=== PATIENT | female | born 1990 | race Caucasian/White ===

== ENCOUNTER 2018-05-19 20:17 | Emergency (ER) | payer OTHER, MEDICAID ==
[~2018-05-19] VITALS: Ht 162.6 cm; Wt 78.0 kg
[~2018-05-19 20:17] MED LIST: PHENERGAN 25 MG25 M1 PO; POTASSIUM20 PO
[2018-05-19 20:56] LABS: BASOPHILS 0.4 %; HEMATOCRIT 43.5 % (37.0-47.0); HEMOGLOBIN 15.2 gm/dL (12.0-15.0); NUCLEATED RBCS 0 /100WBC; PLATELET COUNT* 248 thou/uL (150-400)
[2018-05-19 20:57] LABS: ABSOLUTE EOSINOPHILS 0.2 thou/uL (0.0-0.7); ABSOLUTE LYMPHOCYTES 1.1 thou/uL (0.8-5.3); ABSOLUTE MONOCYTES 0.4 thou/uL (0.0-1.2); ABSOLUTE NEUTROPHILS 5.6 thou/uL (1.6-8.1); EOSINOPHILS 2.5 %; LYMPHOCYTES 15.2 %; MCH 32.4 pg (26.0-34.0); MCHC 35.1 g/dL (28.0-37.0); MCV 92.3 fL (80.0-100.0); MONOCYTES 4.9 %; RBC 4.71 mil/uL (4.20-5.00); RDW-CV 13.4 % (10.5-14.5); WBC 7.3 thou/uL (4.0-11.0)
[2018-05-19 20:59] LABS: CALCIUM 8.9 mg/dL (8.5-10.1); CREATININE 0.6 mg/dL (0.6-1.3); POTASSIUM 3.3 mmol/L (3.5-5.1)
[2018-05-19 21:04] LABS: ALBUMIN 3.9 g/dL (3.4-5.0); TOTAL BILIRUBIN 0.5 mg/dL (<0.1-1.0)
[2018-05-19] MEDS ORDERED: ZOFRAN ODT4 MG SUBLING (21:23)
[2018-05-19 21:45] VITALS: BP 117/58
== END 2018-05-19 21:46 | disposition home or self-care (01) ==
LOC: M.ERS 20:17
PROVIDERS: Family Medicine
DX: O21.9 Vomiting of pregnancy, unspecified (principal); R19.7 Diarrhea, unspecified; F17.210 Nicotine dependence, cigarettes, uncomplicated; G47.30 Sleep apnea, unspecified; L40.9 Psoriasis, unspecified; Z88.8 Allergy status to other drugs, medicaments and biological substances; Z90.49 Acquired absence of other specified parts of digestive tract; Z3A.08 8 weeks gestation of pregnancy

== ENCOUNTER 2018-09-06 02:12 | Emergency (ER) | payer OTHER, MEDICAID ==
[~2018-09-06] VITALS: Ht 162.6 cm; Wt 80.7 kg
[~2018-09-06 02:12] MED LIST changes: +ZOFRAN ODT4 MG SUBLING
[2018-09-06] MEDS ORDERED: PRENATAL PO (02:22)
[2018-09-06] MEDS ORDERED: AMOXICILLIN 50500 MG PO (02:24)
[2018-09-06 02:30] VITALS: BP 130/68
== END 2018-09-06 02:30 | disposition home or self-care (01) ==
LOC: M.ERS 02:12
DX: O26.892 Other specified pregnancy related conditions, second trimester (principal); Z3A.23 23 weeks gestation of pregnancy; K02.9 Dental caries, unspecified; Z90.49 Acquired absence of other specified parts of digestive tract; G47.30 Sleep apnea, unspecified; F17.210 Nicotine dependence, cigarettes, uncomplicated; Z88.8 Allergy status to other drugs, medicaments and biological substances

== ENCOUNTER 2018-10-11 12:31 | Emergency (ER) | payer OTHER, MEDICAID ==
[~2018-10-11] VITALS: Ht 162.6 cm; Wt 82.6 kg
[~2018-10-11 12:31] MED LIST changes: +AMOXICILLIN 50500 MG PO; +PRENATAL PO
[2018-10-11 13:21] LABS: HEMATOCRIT 35.7 % (37.0-47.0); HEMOGLOBIN 12.5 gm/dL (12.0-15.0); MCH 33.2 pg (26.0-34.0); MCHC 35.1 g/dL (28.0-37.0); MCV 94.5 fL (80.0-100.0); NUCLEATED RBCS 0 /100WBC; PLATELET COUNT* 208 thou/uL (150-400); RBC 3.78 mil/uL (4.20-5.00); RDW-CV 13.4 % (10.5-14.5); WBC 6.4 thou/uL (4.0-11.0)
[2018-10-11 13:39] LABS: ANION GAP 11 mmol/L (7-16); BUN 5 mg/dL (7-18); CALCIUM 8.3 mg/dL (8.5-10.1); CHLORIDE 105 mmol/L (98-107); CO2 22 mmol/L (21-32); CREATININE 0.5 mg/dL (0.6-1.3); GLUCOSE 87 mg/dL (70-99); POTASSIUM 3.2 mmol/L (3.5-5.1); SODIUM 138 mmol/L (136-145); TROPONIN-I LEVEL <0.06 ng/mL (<0.06)
[2018-10-11 13:40] LABS: ALBUMIN 2.6 g/dL (3.4-5.0); ALKALINE PHOSPHATASE 96 U/L (46-116); LIPASE 131 U/L (73-393); NT-PRO BRAIN NAT PEPTIDE 70 pg/mL (<300); SGOT 19 U/L (15-37); SGPT 17 U/L (30-65); TOTAL BILIRUBIN 0.2 mg/dL (<0.1-1.0); TOTAL PROTEIN 6.7 g/dL (6.4-8.2)
[2018-10-11 14:07] LABS: URINE BILIRUBIN NEGATIVE (Negative); URINE BLOOD NEGATIVE (Negative); URINE CLARITY SL CLOUDY; URINE COLOR DARK YELLOW; URINE GLUCOSE-RANDOM NEGATIVE (Negative); URINE KETONES NEGATIVE (Negative); URINE LEUKOCYTES-REFLEX NEGATIVE (Negative); URINE NITRITE-REFLEX NEGATIVE (Negative); URINE PROTEIN NEGATIVE (Negative); URINE SPECIFIC GRAVITY >= 1.030 (1.005-1.030); URINE UROBILINOGEN 0.2 E.U./dl (0.2-1.0)
[2018-10-11 14:18] LABS: SQUAMOUS >10 Many /LPF (0-3)
[2018-10-11 14:19] LABS: URINE RBC 0-2 Rare /HPF (0-2); URINE WBC-REFLEX 0-5 Rare /HPF (0-5)
[2018-10-11 14:20] LABS: CASTS None Seen /LPF (None Seen); CRYSTALS None Seen /LPF (None Seen); MUCUS >6 Heavy strn/LPF (None Seen)
[2018-10-11 14:33] LABS: INFLUENZA B ANTIGEN None Detected (None Detect)
[2018-10-11 14:39] LABS: ABSOLUTE BASOPHILS 0.1 thou/uL (0.0-0.2); ABSOLUTE EOSINOPHILS 0.1 thou/uL (0.0-0.7); ABSOLUTE LYMPHOCYTES 0.5 thou/uL (0.8-5.3); ABSOLUTE MONOCYTES 0.2 thou/uL (0.0-1.2); ABSOLUTE NEUTROPHILS 5.6 thou/uL (1.6-8.1); PLATELET ESTIMATE ADEQUATE
[2018-10-11] MEDS ORDERED: ONDANSETRON HCL4 M2 PO (15:31)
[2018-10-11] MEDS ORDERED: VENTOLIN HFA 1818 GM INH (15:31)
[2018-10-11] MEDS ORDERED: OSELB75 PO (15:31)
[2018-10-11] MEDS ORDERED: ZPAK PO (15:31)
[2018-10-11 15:42] VITALS: BP 120/67
--- NOTE | 2018-10-12 15:04 | EKG ---
[place] [address] ELECTROCARDIOGRAM REPORT Name: PARIS BARBA Room: [facility]#: [id number] Admission: 10/11/18 Attend Phys: Discharge: 10/11/18 Date of : [birth year] Report #: [id number] THIS REPORT FOR: //name// [facility] ED Test Date: 2018-10-11 Test Time: 13:26:03 Pat Name: PARIS BARBA Department: Room: Gender: F Trim Machine Adjuster: Alanna BATISTA : 1990 Requested By: Myrna Moore Order Number: [id number] MD: Will Govea Measurements Intervals [place] Rate: 113 P: 44 ND: 145 QRS: 1 QRSD: 82 T: 15 QT: 324 QTc: 445 Interpretive Statements Sinus tachycardia No previous ECG available for comparison Electronically Signed On 10-12-2018 15:04:46 CDT by Will Govea [email or web address] <ELECTRONICALLY SIGNED> By: Will Govea MD, [facility] 10/12/18 1504 1326 1326 Will Govea MD, [facility] /EPI
== END 2018-10-11 15:44 | disposition home or self-care (01) ==
LOC: M.ERS 12:31
PROVIDERS: Nurse Practitioner Family
DX: J09.X1 Influenza due to identified novel influenza A virus with pneumonia (principal); G47.30 Sleep apnea, unspecified; Z90.49 Acquired absence of other specified parts of digestive tract; F17.210 Nicotine dependence, cigarettes, uncomplicated; Z88.8 Allergy status to other drugs, medicaments and biological substances

== ENCOUNTER 2018-11-07 18:56 | Emergency (ER) | payer OTHER, MEDICAID ==
[~2018-11-07] VITALS: Ht 162.6 cm; Wt 82.6 kg
[~2018-11-07 18:56] MED LIST changes: +ONDANSETRON HCL4 M2 PO; +OSELB75 PO; +VENTOLIN HFA 1818 GM INH; +ZPAK PO
[2018-11-07] MEDS ORDERED: ZPAK PO (19:55)
[2018-11-07 20:25] LABS: INFLUENZA A ANTIGEN None Detected (None Detect); INFLUENZA B ANTIGEN None Detected (None Detect)
[2018-11-07 20:38] VITALS: BP 118/78
== END 2018-11-07 20:46 | disposition home or self-care (01) ==
LOC: M.ERS 18:56
PROVIDERS: Physician Assistant
DX: J18.9 Pneumonia, unspecified organism (principal); G47.30 Sleep apnea, unspecified; Z90.49 Acquired absence of other specified parts of digestive tract; F17.210 Nicotine dependence, cigarettes, uncomplicated; Z88.8 Allergy status to other drugs, medicaments and biological substances

== ENCOUNTER 2019-04-13 20:53 | Inpatient (IN) | payer OTHER, MEDICAID ==
[~2019-04-13] VITALS: Ht 162.6 cm; Wt 72.6 kg
[2019-04-13 21:11] VITALS: BP 120/83
[2019-04-13 22:11] LABS: ABSOLUTE BASOPHILS 0.1 thou/uL (0.0-0.2); ABSOLUTE EOSINOPHILS 0.2 thou/uL (0.0-0.7); ABSOLUTE LYMPHOCYTES 2.8 thou/uL (0.8-5.3); ABSOLUTE MONOCYTES 0.6 thou/uL (0.0-1.2); ABSOLUTE NEUTROPHILS 4.3 thou/uL (1.6-8.1); BASOPHILS 0.9 %; HEMATOCRIT 40.8 % (37.0-47.0); HEMOGLOBIN 14.1 gm/dL (12.0-15.0); MCH 32.6 pg (26.0-34.0); MCHC 34.4 g/dL (28.0-37.0); MCV 94.6 fL (80.0-100.0); MONOCYTES 7.1 %; MPV 7.9 fl. (7.2-11.1); NUCLEATED RBCS 0 /100WBC; PLATELET COUNT* 259 thou/uL (150-400); RBC 4.31 mil/uL (4.20-5.00); RDW-CV 13.7 % (10.5-14.5)
[2019-04-13 22:22] LABS: ANION GAP 10 mmol/L (7-16); BUN 13 mg/dL (7-18); CALCIUM 8.8 mg/dL (8.5-10.1); CHLORIDE 107 mmol/L (98-107); CO2 25 mmol/L (21-32); CREATININE 0.8 mg/dL (0.6-1.3); GLUCOSE 81 mg/dL (70-99); POTASSIUM 3.8 mmol/L (3.5-5.1); SODIUM 142 mmol/L (136-145)
[2019-04-13 22:26] LABS: ALBUMIN 3.4 g/dL (3.4-5.0); ALKALINE PHOSPHATASE 73 U/L (46-116); SGOT 13 U/L (15-37); SGPT 20 U/L (30-65); TOTAL BILIRUBIN 0.1 mg/dL (<0.1-1.0); TOTAL PROTEIN 7.2 g/dL (6.4-8.2); TROPONIN-I LEVEL <0.06 ng/mL (<0.06)
[2019-04-13 22:39] LABS: URINE BILIRUBIN NEGATIVE (Negative); URINE BLOOD 3+ (Negative); URINE CLARITY CLEAR; URINE COLOR YELLOW; URINE GLUCOSE-RANDOM NEGATIVE (Negative); URINE KETONES NEGATIVE (Negative); URINE LEUKOCYTES-REFLEX NEGATIVE (Negative); URINE NITRITE-REFLEX NEGATIVE (Negative); URINE PROTEIN NEGATIVE (Negative); URINE SPECIFIC GRAVITY 1.015 (1.005-1.030); URINE UROBILINOGEN 0.2 E.U./dl (0.2-1.0)
[2019-04-13 22:46] LABS: SQUAMOUS 4-10 Moderate /LPF (0-3)
[2019-04-13 22:47] LABS: BACTERIA-REFLEX 1-9 Few /HPF (None Seen); MUCUS 0-3 Light strn/LPF (None Seen); URINE WBC-REFLEX 0-5 Rare /HPF (0-5)
[2019-04-13 22:48] LABS: CASTS None Seen /LPF (None Seen); CRYSTALS None Seen /LPF (None Seen)
[2019-04-14] VITALS (7 sets, daily range): BP systolic 98–113; BP diastolic 40–67
--- NOTE | 2019-04-14 12:13 | 2DMMODE ---
[place] [address] 2 D/M-MODE ECHOCARDIOGRAM Name: PARIS BARBA Room: [facility] ADM IN [facility]#: [id number] Admission: 04/13/19 Attend Phys: Karl Frye Discharge: Date of : 89 Date of Service: 04/14/19 1213 Report #: [id number] THIS REPORT FOR: //name// APPROVED REPORT Study performed: 04/14/2019 11:00:15 EXAM: Comprehensive 2D, Doppler, and color-flow Echocardiogram Patient Location: In-Patient Room #: [facility] Status: routine BSA: 1.87 HR: 70 bpm BP: 109/54 mmHg Rhythm: NSR Other Information Study Quality: Good Indications Pulmonary Embolism 2D Dimensions IVSd: 10.36 (7-11mm) LVOT Diam: 20.35 (18-24mm) LVDd: 41.88 mm PWd: 9.66 (7-11mm) Ascending Ao: 26.69 (22-36mm) LVDs: 25.13 (25-40mm) Aortic Root: 28.21 mm Volumes Left Atrial Volume (Systole) LA ESV Index: 20.10 mL/m2 Aortic Valve AoV Peak Bryan.: 1.34 m/s AO Peak Gr.: 7.16 mmHg LVOT Max P.94 mmHg AO Mean Gr.: 3.79 mmHg LVOT Mean P.88 mmHg LVOT Max V: 0.99 m/s AO V2 VTI: 26.83 cm LVOT Mean V: 0.62 m/s SHAUN (VTI): 2.68 cm2 LVOT V1 VTI: 22.08 cm Mitral Valve E/A Ratio: 2.30 MV Decel. Time: 153.32 ms MV E Max Bryan.: 0.85 m/[place] [address] 2 D/M-MODE ECHOCARDIOGRAM Name: PARIS BARBA Room: [address] IN .R.#: [id number] Admission: 04/13/19 Attend Phys: Karl Frye Discharge: Date of : [birth year] Date of Service: 04/14/19 1213 Report #: [id number] MV PHT: 44.46 ms MVA (PHT): 4.95 cm2 TDI E/Lateral E': 5.00 E/Medial E': 6.07 Medial E' Bryan.: 0.14 m/s Lateral E' Bryan.: 0.17 m/s Pulmonary Valve PV Peak Bryan.: 1.05 m/s PV Peak Gr.: 4.37 mmHg Left Ventricle The left ventricle is normal size. There is normal LV segmental wall motion. There is normal left ventricular wall thickness. Left ventricular systolic function is normal. LVEF is 60-65%. The left ventricular diastolic function is normal. Right Ventricle The right ventricle is normal size. The right ventricular systolic function is normal. Atria The left atrium size is normal. The right atrium size is normal. Aortic Valve The aortic valve is normal in structure. No aortic regurgitation is present. There is no aortic valvular stenosis. Mitral Valve The mitral valve is normal in structure. Trace mitral regurgitation. No evidence of mitral valve stenosis. Tricuspid Valve The tricuspid valve is normal in structure. Unable to assess PA pressure. Trace tricuspid regurgitation. Pulmonic Valve The pulmonary valve is normal in structure. There is no pulmonic valvular regurgitation. Great Vessels The aortic root is normal in size. IVC is normal in size and collapses >50% with inspiration. [place] [address] 2 D/M-MODE ECHOCARDIOGRAM Name: PARIS BARBA Room: [address] IN [facility]#: [id number] Admission: 04/13/19 Attend Phys: Karl Frye Discharge: Date of : [birth year] Date of Service: 04/14/19 1213 Report #: [id number] There is no pericardial effusion. <Conclusion> The left ventricle is normal size. There is normal left ventricular wall thickness. Left ventricular systolic function is normal. LVEF is 60-65%. The left ventricular diastolic function is normal. There is normal LV segmental wall motion. IVC is normal in size and collapses >50% with inspiration. <ELECTRONICALLY SIGNED> By: Will Govea MD, FACC 04/14/19 121 12 121 Will Govea MD, FACC /INF
[2019-04-14 14:50] LABS: URINE BILIRUBIN NEGATIVE (Negative); URINE BLOOD 3+ (Negative); URINE CLARITY CLEAR; URINE COLOR YELLOW; URINE GLUCOSE-RANDOM NEGATIVE (Negative); URINE KETONES NEGATIVE (Negative); URINE LEUKOCYTES-REFLEX TRACE (Negative); URINE NITRITE-REFLEX NEGATIVE (Negative); URINE PROTEIN NEGATIVE (Negative); URINE UROBILINOGEN 0.2 E.U./dl (0.2-1.0)
--- NOTE | 2019-04-14 15:01 | EKG ---
[place] [address] ELECTROCARDIOGRAM REPORT Name: PARIS BARBA Room: [address] ADM IN ..#: [id number] Admission: 04/13/19 Attend Phys: Scooter Reyes Discharge: Date of : [birth year] Report #: [id number] THIS REPORT FOR: //name// [facility] ED Test Date: 2019-04-13 Test Time: 22:00:56 Pat Name: PARIS BARBA Department: Room: [facility] Gender: F Medication Technician: MIGUEL : 1990 Requested By: Germania Tariq Order Number: [id number] MD: Will Govea Measurements Intervals [place] Rate: 85 P: 27 NE: 168 QRS: -3 QRSD: 85 T: 8 QT: 355 QTc: 422 Interpretive Statements Sinus rhythm Low voltage, extremity leads Compared to ECG 10/11/2018 13:26:03 Low QRS voltage now present Sinus tachycardia no longer present Electronically Signed On 04-14-2019 15:01:34 CDT by Will Govea [email or web address] <ELECTRONICALLY SIGNED> By: Will Govea MD, FAC 04/14/19 1501 99 99 Will Govea MD, [facility] /EPI
--- NOTE | 2019-04-14 15:08 | EKG ---
[place] [address] ELECTROCARDIOGRAM REPORT Name: PARIS BARBA Room: [address] ADM IN .R.#: [id number] Admission: 04/13/19 Attend Phys: Scooter Reyes Discharge: Date of : [birth year] Report #: [id number] THIS REPORT FOR: //name// [facility] Test Date: 2019-04-14 Test Time: 14:30:52 Pat Name: PARIS BARBA Department: Room: [address] Gender: F Clinical Data Abstractor: RT : 1990 Requested By: Rani Devi Order Number: [id number] MD: Will Govea Measurements Intervals [place] Rate: 96 P: 55 ME: 145 QRS: 92 QRSD: 96 T: 43 QT: 345 QTc: 436 Interpretive Statements Sinus arrhythmia Borderline right axis deviation Compared to ECG 10/11/2018 13:26:03 Sinus tachycardia no longer present Electronically Signed On 04-14-2019 15:08:22 CDT by Will Govea [email or web address] <ELECTRONICALLY SIGNED> By: Will Govea MD, [facility] 04/14/19 1508 1430 1430 Will Govea MD, [facility] /EPI
[2019-04-14 15:14] LABS: BACTERIA-REFLEX 1-9 Few /HPF (None Seen); CASTS None Seen /LPF (None Seen); CRYSTALS None Seen /LPF (None Seen); SQUAMOUS 0-3 Few /LPF (0-3); URINE RBC 0-2 Rare /HPF (0-2); URINE WBC-REFLEX 0-5 Rare /HPF (0-5)
[2019-04-15 04:39] VITALS: BP 107/54
[2019-04-15 08:00] VITALS: BP 106/61
[2019-04-15] MEDS ORDERED: ELIQUIS5 MG PO (09:11)
[2019-04-15 11:08] VITALS: BP 106/61
[2019-04-15] MEDS ORDERED: XARELTO15 MG PO (11:45)
== END 2019-04-15 12:30 | disposition home or self-care (01) | DRG 176 ==
LOC: M.ERS 20:53 → M.2W 23:52 → M.TBA-ER 23:52 → M.2W 04-14 00:06
PROVIDERS: Family Medicine; Physician Assistant; ADMIT Internal Medicine
DX: I26.99 Other pulmonary embolism without acute cor pulmonale (principal); Z90.49 Acquired absence of other specified parts of digestive tract; Z87.01 Personal history of pneumonia (recurrent); Z88.8 Allergy status to other drugs, medicaments and biological substances; Z71.6 Tobacco abuse counseling; Z80.0 Family history of malignant neoplasm of digestive organs; Z79.899 Other long term (current) drug therapy

== ENCOUNTER 2019-04-19 15:57 | Emergency (ER) | payer OTHER, MEDICAID ==
[~2019-04-19] VITALS: Ht 162.6 cm; Wt 77.1 kg
[~2019-04-19 15:57] MED LIST changes: +ELIQUIS5 MG PO; +XARELTO15 MG PO
[2019-04-19] MEDS ORDERED: VISTARIL 25 MG25 M1 PO (17:23)
[2019-04-19 17:51] VITALS: BP 127/83
--- NOTE | 2019-04-20 10:28 | EKG ---
[place] [address] ELECTROCARDIOGRAM REPORT Name: PARIS BARBA Room: [facility]#: [id number] Admission: 04/19/19 Attend Phys: Discharge: 04/19/19 Date of : [birth year] Report #: [id number] THIS REPORT FOR: //name// [facility] ED Test Date: 2019-04-19 Test Time: 16:50:10 Pat Name: PARIS BARBA Department: Room: Gender: F Service Delivery Manager: : 1990 Requested By: Germania Tariq Order Number: [id number] MD: Johnny Melgar Measurements Intervals [place] Rate: 91 P: 30 NC: 166 QRS: 34 QRSD: 82 T: 21 QT: 349 QTc: 430 Interpretive Statements Sinus rhythm Borderline low voltage, extremity leads Baseline wander in lead(s) V2 Compared to ECG 04/14/2019 14:30:52 Sinus arrhythmia no longer present Electronically Signed On 04-20-2019 10:28:21 CDT by Johnny Melgar [email or web address] <ELECTRONICALLY SIGNED> By: Johnny Melgar MD, [facility] 04/20/19 1028 1650 1650 Johnny Melgar MD, [facility] /EPI
== END 2019-04-19 17:53 | disposition home or self-care (01) ==
LOC: M.ERS 15:57
DX: F41.9 Anxiety disorder, unspecified (principal); F17.210 Nicotine dependence, cigarettes, uncomplicated; G47.30 Sleep apnea, unspecified; L40.9 Psoriasis, unspecified; Z88.8 Allergy status to other drugs, medicaments and biological substances; Z86.711 Personal history of pulmonary embolism; Z90.49 Acquired absence of other specified parts of digestive tract

== ENCOUNTER 2019-06-27 17:56 | Emergency (ER) | payer BC ==
[~2019-06-27] VITALS: Ht 162.6 cm; Wt 82.1 kg
[~2019-06-27 17:56] MED LIST changes: +VISTARIL 25 MG25 M1 PO
[2019-06-27] MEDS ORDERED: TOPROL XL25 MG PO (18:04)
[2019-06-27 18:19] LABS: ABSOLUTE BASOPHILS 0.1 thou/uL (0.0-0.2); ABSOLUTE EOSINOPHILS 0.2 thou/uL (0.0-0.7); ABSOLUTE LYMPHOCYTES 2.6 thou/uL (0.8-5.3); ABSOLUTE MONOCYTES 0.4 thou/uL (0.0-1.2); ABSOLUTE NEUTROPHILS 4.3 thou/uL (1.6-8.1); BASOPHILS 0.8 %; EOSINOPHILS 2.4 %; HEMATOCRIT 45.4 % (37.0-47.0); LYMPHOCYTES 34.6 %; MCH 31.9 pg (26.0-34.0); MCHC 35.3 g/dL (28.0-37.0); MCV 90.2 fL (80.0-100.0); MONOCYTES 4.9 %; MPV 7.6 fl. (7.2-11.1); NUCLEATED RBCS 0 /100WBC; PLATELET COUNT* 260 thou/uL (150-400); POLYS 57.3 %; RBC 5.03 mil/uL (4.20-5.00); RDW-CV 13.9 % (10.5-14.5); WBC 7.5 thou/uL (4.0-11.0)
[2019-06-27 18:26] LABS: CALCIUM 8.9 mg/dL (8.5-10.1); CREATININE 0.7 mg/dL (0.6-1.3); POTASSIUM 3.6 mmol/L (3.5-5.1)
[2019-06-27 18:30] LABS: APTT 26.7 Seconds (25.0-31.3); PROTIME 10.7 Seconds (9.20-11.50)
[2019-06-27 18:37] LABS: ALBUMIN 4.3 g/dL (3.4-5.0); TOTAL BILIRUBIN 0.3 mg/dL (<0.1-1.0); TOTAL PROTEIN 8.5 g/dL (6.4-8.2)
[2019-06-27 19:39] VITALS: BP 109/65
--- NOTE | 2019-06-29 11:30 | EKG ---
[place] [address] ELECTROCARDIOGRAM REPORT Name: PARIS BARBA Room: [facility]#: [id number] Admission: 06/27/19 Attend Phys: Discharge: 06/27/19 Date of : [birth year] Report #: [id number] THIS REPORT FOR: //name// [facility] ED Test Date: 2019-06-27 Test Time: 18:01:11 Pat Name: PARIS BARBA Department: Room: Gender: F Branch Library Clerk: : 1990 Requested By: Myrna Moore Order Number: [id number] MD: Johnny Melgar Measurements Intervals [place] Rate: 105 P: 36 MT: 166 QRS: 8 QRSD: 93 T: 27 QT: 338 QTc: 447 Interpretive Statements Sinus tachycardia Low voltage, extremity leads Compared to ECG 04/19/2019 16:50:10 Sinus rhythm no longer present Electronically Signed On 06-29-2019 11:30:11 CORN HUSK BALER by Johnny Melgar [email or web address] <ELECTRONICALLY SIGNED> By: Johnny Melgar MD, [facility] 06/29/19 1130 00 00 Johnny Melgar MD, FACC /EPI
== END 2019-06-27 19:39 | disposition home or self-care (01) ==
LOC: M.ERS 17:56
PROVIDERS: Nurse Practitioner Family
DX: R07.89 Other chest pain (principal); G47.30 Sleep apnea, unspecified; F17.210 Nicotine dependence, cigarettes, uncomplicated; Z88.8 Allergy status to other drugs, medicaments and biological substances; Z87.01 Personal history of pneumonia (recurrent); Z86.711 Personal history of pulmonary embolism

== ENCOUNTER 2019-07-05 15:13 | Emergency (ER) | payer BC ==
[~2019-07-05] VITALS: Ht 160 cm; Wt 74.8 kg
[~2019-07-05 15:13] MED LIST changes: +TOPROL XL25 MG PO
[2019-07-05] MEDS ORDERED: XARELTO20 MG PO (15:27)
[2019-07-05] MEDS ORDERED: TOPROL XL25 MG PO (15:27)
[2019-07-05 16:05] LABS: URINE BILIRUBIN NEGATIVE (Negative); URINE BLOOD 2+ (Negative); URINE CLARITY CLEAR; URINE COLOR YELLOW; URINE GLUCOSE-RANDOM NEGATIVE (Negative); URINE KETONES TRACE (Negative); URINE LEUKOCYTES-REFLEX NEGATIVE (Negative); URINE NITRITE-REFLEX NEGATIVE (Negative); URINE PROTEIN NEGATIVE (Negative); URINE UROBILINOGEN 0.2 E.U./dl (0.2-1.0)
[2019-07-05 16:12] LABS: SQUAMOUS 4-10 Moderate /LPF (0-3); URINE RBC 3-10 Few /HPF (0-2); URINE WBC-REFLEX 0-5 Rare /HPF (0-5)
[2019-07-05 16:13] LABS: BACTERIA-REFLEX 1-9 Few /HPF (None Seen)
[2019-07-05 16:14] LABS: CASTS None Seen /LPF (None Seen); CRYSTALS None Seen /LPF (None Seen); MUCUS None Seen strn/LPF (None Seen)
[2019-07-05 16:14] LABS: ABSOLUTE EOSINOPHILS 0.2 thou/uL (0.0-0.7); ABSOLUTE LYMPHOCYTES 1.8 thou/uL (0.8-5.3); ABSOLUTE MONOCYTES 0.4 thou/uL (0.0-1.2); ABSOLUTE NEUTROPHILS 4.6 thou/uL (1.6-8.1); BASOPHILS 0.6 %; EOSINOPHILS 3.5 %; HEMATOCRIT 42.7 % (37.0-47.0); LYMPHOCYTES 25.7 %; MCHC 35.1 g/dL (28.0-37.0); MCV 91.3 fL (80.0-100.0); MONOCYTES 5.3 %; MPV 7.8 fl. (7.2-11.1); NUCLEATED RBCS 0 /100WBC; PLATELET COUNT* 263 thou/uL (150-400); POLYS 64.9 %; RBC 4.67 mil/uL (4.20-5.00)
[2019-07-05 16:22] LABS: CALCIUM 8.8 mg/dL (8.5-10.1); POTASSIUM 3.9 mmol/L (3.5-5.1)
[2019-07-05 16:24] LABS: APTT 25.4 Seconds (25.0-31.3); PROTIME 10.7 Seconds (9.20-11.50)
[2019-07-05 16:27] LABS: ALBUMIN 3.9 g/dL (3.4-5.0); TOTAL BILIRUBIN 0.2 mg/dL (<0.1-1.0)
[2019-07-05 17:25] VITALS: BP 148/70
== END 2019-07-05 17:27 | disposition home or self-care (01) ==
LOC: M.ERS 15:13
PROVIDERS: Nurse Practitioner Family
DX: N93.9 Abnormal uterine and vaginal bleeding, unspecified (principal); G47.30 Sleep apnea, unspecified; F17.210 Nicotine dependence, cigarettes, uncomplicated; Z87.01 Personal history of pneumonia (recurrent); Z88.8 Allergy status to other drugs, medicaments and biological substances; Z86.711 Personal history of pulmonary embolism

== ENCOUNTER 2019-07-17 14:01 | Emergency (ER) | payer BC ==
[~2019-07-17] VITALS: Ht 162.6 cm; Wt 68.0 kg
[~2019-07-17 14:01] MED LIST changes: +XARELTO20 MG PO
[2019-07-17 14:58] LABS: ABSOLUTE EOSINOPHILS 0.1 thou/uL (0.0-0.7); ABSOLUTE LYMPHOCYTES 1.1 thou/uL (0.8-5.3); ABSOLUTE MONOCYTES 0.3 thou/uL (0.0-1.2); ABSOLUTE NEUTROPHILS 5.5 thou/uL (1.6-8.1); BASOPHILS 0.4 %; HEMATOCRIT 41.7 % (37.0-47.0); HEMOGLOBIN 14.5 gm/dL (12.0-15.0); LYMPHOCYTES 15.3 %; MCH 31.4 pg (26.0-34.0); MCHC 34.7 g/dL (28.0-37.0); MCV 90.5 fL (80.0-100.0); MONOCYTES 4.9 %; NUCLEATED RBCS 0 /100WBC; PLATELET COUNT* 250 thou/uL (150-400); POLYS 78.4 %; RBC 4.62 mil/uL (4.20-5.00); RDW-CV 13.4 % (10.5-14.5)
[2019-07-17 15:06] LABS: CREATININE 0.7 mg/dL (0.6-1.3); POTASSIUM 3.7 mmol/L (3.5-5.1)
[2019-07-17 15:10] LABS: ALBUMIN 3.7 g/dL (3.4-5.0); MAGNESIUM 1.6 mg/dL (1.8-2.4); TOTAL BILIRUBIN 0.4 mg/dL (<0.1-1.0); TOTAL PROTEIN 7.5 g/dL (6.4-8.2)
--- NOTE | 2019-07-17 15:53 | EKG ---
[place] [address] ELECTROCARDIOGRAM REPORT Name: PARIS BARBA Room: [facility]#: [id number] Admission: 07/17/19 Attend Phys: Discharge: Date of : [birth year] Report #: [id number] THIS REPORT FOR: //name// [facility] ED Test Date: 2019-07-17 Test Time: 14:06:33 Pat Name: PARIS BARBA Department: Room: Gender: F Asphalt Dauber: : 1990 Requested By: Olaf Luciano Order Number: [id number] MD: Johnny Melgar Measurements Intervals [place] Rate: 109 P: 50 [place]: 184 QRS: 35 QRSD: 119 T: 45 QT: 329 QTc: 444 Interpretive Statements Sinus tachycardia Nonspecific intraventricular conduction delay Borderline low voltage, extremity leads Compared to ECG 06/27/2019 18:01:11 Intraventricular conduction delay now present Electronically Signed On 07-17-2019 15:53:09 COPYRIGHT EXPERT by Johnny Melgar [email or web address] <ELECTRONICALLY SIGNED> By: Johnny Melgar MD, [facility] 07/17/19 1553 D: 12/1405 05 Johnny Melgar MD, FACC /EPI
[2019-07-17] MEDS ORDERED: ZOFRAN ODT4 MG DISSOLVE (15:57)
[2019-07-17 16:27] VITALS: BP 103/69
== END 2019-07-17 16:27 | disposition home or self-care (01) ==
LOC: M.ERS 14:01
PROVIDERS: Emergency Medicine Emergency Medical Services
DX: K52.9 Noninfective gastroenteritis and colitis, unspecified (principal); R00.2 Palpitations; G47.30 Sleep apnea, unspecified; L40.9 Psoriasis, unspecified; F17.210 Nicotine dependence, cigarettes, uncomplicated; Z87.01 Personal history of pneumonia (recurrent); Z86.711 Personal history of pulmonary embolism; Z88.8 Allergy status to other drugs, medicaments and biological substances

== ENCOUNTER 2019-07-22 22:59 | Emergency (ER) | payer BC ==
[~2019-07-22] VITALS: Ht 162.6 cm; Wt 81.2 kg
[~2019-07-22 22:59] MED LIST changes: +ZOFRAN ODT4 MG DISSOLVE
[2019-07-23] MEDS ORDERED: TRAMADOL 50 MG50 MG PO (00:21)
[2019-07-23 00:51] VITALS: BP 109/69
--- NOTE | 2019-07-23 12:54 | EKG ---
[place] [address] ELECTROCARDIOGRAM REPORT Name: PARIS BARBA Room: [facility]#: [id number] Admission: 07/22/19 Attend Phys: Discharge: 07/23/19 Date of : [birth year] Report #: [id number] THIS REPORT FOR: //name// [facility] ED Test Date: 2019-07-22 Test Time: 23:04:58 Pat Name: PARIS BARBA Department: Room: Gender: F Chief Service Dispatcher: : 1990 Requested By: Nura Suarez Order Number: [id number] MD: Qasim Sidhu Measurements Intervals [place] Rate: 96 P: 36 [place]: 160 QRS: -11 QRSD: 85 T: 27 QT: 331 QTc: 419 Interpretive Statements Sinus rhythm Compared to ECG 07/17/2019 14:06:33 Sinus tachycardia no longer present Intraventricular conduction delay no longer present Electronically Signed On 07-23-2019 12:53:50 TAR ROOFER by Qasim Sidhu [email or web address] <ELECTRONICALLY SIGNED> By: Qasim Sidhu MD, [facility] 07/23/19 5223 03 Qasim Sidhu MD, FACC /EPI
== END 2019-07-23 00:53 | disposition home or self-care (01) ==
LOC: M.ERS 22:59
DX: R07.89 Other chest pain (principal); G47.30 Sleep apnea, unspecified; Z90.49 Acquired absence of other specified parts of digestive tract; Z86.711 Personal history of pulmonary embolism; Z88.8 Allergy status to other drugs, medicaments and biological substances; Z87.891 Personal history of nicotine dependence

== ENCOUNTER 2019-08-30 01:48 | Emergency (ER) | payer BC ==
[~2019-08-30] VITALS: Ht 162.6 cm; Wt 83.0 kg
[~2019-08-30 01:48] MED LIST changes: +TRAMADOL 50 MG50 MG PO
[2019-08-30 02:35] LABS: URINE BILIRUBIN NEGATIVE (Negative); URINE BLOOD NEGATIVE (Negative); URINE CLARITY CLEAR; URINE COLOR YELLOW; URINE GLUCOSE-RANDOM NEGATIVE (Negative); URINE KETONES NEGATIVE (Negative); URINE LEUKOCYTES-REFLEX NEGATIVE (Negative); URINE NITRITE-REFLEX NEGATIVE (Negative); URINE PROTEIN NEGATIVE (Negative); URINE UROBILINOGEN 0.2 E.U./dl (0.2-1.0)
[2019-08-30 02:47] LABS: ABSOLUTE EOSINOPHILS 0.3 thou/uL (0.0-0.7); ABSOLUTE LYMPHOCYTES 2.5 thou/uL (0.8-5.3); ABSOLUTE MONOCYTES 0.6 thou/uL (0.0-1.2); ABSOLUTE NEUTROPHILS 5.8 thou/uL (1.6-8.1); BASOPHILS 0.5 %; EOSINOPHILS 3.1 %; HEMATOCRIT 38.6 % (37.0-47.0); HEMOGLOBIN 13.7 gm/dL (12.0-15.0); LYMPHOCYTES 27.3 %; MCH 32.2 pg (26.0-34.0); MCHC 35.5 g/dL (28.0-37.0); MCV 90.7 fL (80.0-100.0); MONOCYTES 6.2 %; MPV 7.9 fl. (7.2-11.1); NUCLEATED RBCS 0 /100WBC; PLATELET COUNT* 245 thou/uL (150-400); POLYS 62.9 %; RBC 4.25 mil/uL (4.20-5.00); RDW-CV 14.1 % (10.5-14.5); WBC 9.2 thou/uL (4.0-11.0)
[2019-08-30 02:56] LABS: CALCIUM 8.3 mg/dL (8.5-10.1); CREATININE 0.9 mg/dL (0.6-1.3); POTASSIUM 3.5 mmol/L (3.5-5.1)
[2019-08-30 03:00] LABS: ALBUMIN 3.4 g/dL (3.4-5.0); TOTAL BILIRUBIN 0.1 mg/dL (<0.1-1.0); TOTAL PROTEIN 7.1 g/dL (6.4-8.2)
[2019-08-30 04:35] VITALS: BP 114/64
--- NOTE | 2019-08-31 10:10 | EKG ---
[place] [address] ELECTROCARDIOGRAM REPORT Name: PARIS BARBA Room: [facility]#: [id number] Admission: 08/30/19 Attend Phys: Discharge: 08/30/19 Date of : [birth year] Report #: [id number] THIS REPORT FOR: //name// [facility] ED Test Date: 2019-08-30 Test Time: 01:56:35 Pat Name: PARIS BARBA Department: Room: Gender: F Electrical Electronics Engineers: JOSH : 1990 Requested By: Bridget Flood Order Number: [id number] MD: Johnny Melgar Measurements Intervals [place] Rate: 101 P: 40 [place]: 160 QRS: 3 QRSD: 93 T: 27 QT: 334 QTc: 433 Interpretive Statements Sinus tachycardia Compared to ECG 07/22/2019 23:04:58 Sinus rhythm no longer present Electronically Signed On 08-31-2019 10:09:26 CUSTOMER EXPERIENCE RETAIL CLERK by Johnny Melgar [email or web address] <ELECTRONICALLY SIGNED> By: Johnny Melgar MD, [facility] 08/31/19 1009 0156 0156 Johnny Melgar MD, FACC /EPI
== END 2019-08-30 04:37 | disposition home or self-care (01) ==
LOC: M.ERS 01:48
PROVIDERS: Emergency Medicine
DX: R00.2 Palpitations (principal); R00.0 Tachycardia, unspecified; L40.9 Psoriasis, unspecified; G47.30 Sleep apnea, unspecified; Z87.891 Personal history of nicotine dependence; Z88.8 Allergy status to other drugs, medicaments and biological substances; Z86.711 Personal history of pulmonary embolism; Z87.01 Personal history of pneumonia (recurrent)

== ENCOUNTER 2019-10-02 16:18 | Emergency (ER) | payer BC ==
[~2019-10-02] VITALS: Ht 162.6 cm; Wt 83.5 kg
[2019-10-02] MEDS ORDERED: LEXAPRO20 MG PO (16:40)
[2019-10-02 19:00] VITALS: BP 111/68
== END 2019-10-02 19:00 | disposition home or self-care (01) ==
LOC: M.ERS 16:18
DX: M79.662 Pain in left lower leg (principal); G47.30 Sleep apnea, unspecified; L40.9 Psoriasis, unspecified; Z87.891 Personal history of nicotine dependence; Z86.711 Personal history of pulmonary embolism; Z87.01 Personal history of pneumonia (recurrent); Z88.8 Allergy status to other drugs, medicaments and biological substances

== ENCOUNTER 2019-10-06 19:56 | Emergency (ER) | payer BC ==
[~2019-10-06] VITALS: Ht 162.6 cm; Wt 83.9 kg
[~2019-10-06 19:56] MED LIST changes: +LEXAPRO20 MG PO
[2019-10-06 22:41] LABS: ABSOLUTE EOSINOPHILS 0.2 thou/uL (0.0-0.7); ABSOLUTE LYMPHOCYTES 1.5 thou/uL (0.8-5.3); ABSOLUTE MONOCYTES 0.4 thou/uL (0.0-1.2); ABSOLUTE NEUTROPHILS 2.5 thou/uL (1.6-8.1); BASOPHILS 0.7 %; EOSINOPHILS 4.2 %; HEMATOCRIT 42.9 % (37.0-47.0); HEMOGLOBIN 14.9 gm/dL (12.0-15.0); LYMPHOCYTES 32.9 %; MCH 31.5 pg (26.0-34.0); MCHC 34.8 g/dL (28.0-37.0); MCV 90.6 fL (80.0-100.0); MONOCYTES 7.6 %; MPV 8.2 fl. (7.2-11.1); NUCLEATED RBCS 0 /100WBC; PLATELET COUNT* 237 thou/uL (150-400); POLYS 54.6 %; RBC 4.73 mil/uL (4.20-5.00); RDW-CV 14.3 % (10.5-14.5); WBC 4.6 thou/uL (4.0-11.0)
[2019-10-06 22:47] LABS: CALCIUM 8.5 mg/dL (8.5-10.1); CREATININE 0.7 mg/dL (0.6-1.3); POTASSIUM 3.6 mmol/L (3.5-5.1)
[2019-10-06 22:52] LABS: ALBUMIN 3.7 g/dL (3.4-5.0); TOTAL BILIRUBIN 0.2 mg/dL (<0.1-1.0); TOTAL PROTEIN 7.7 g/dL (6.4-8.2)
[2019-10-06 23:56] VITALS: BP 109/62
--- NOTE | 2019-10-07 10:32 | EKG ---
[place] [address] ELECTROCARDIOGRAM REPORT Name: PARIS BARBA Room: [facility]#: [id number] Admission: 10/06/19 Attend Phys: Discharge: 10/06/19 Date of : [birth year] Date of Service: 10/06/192020 Report #: [id number] THIS REPORT FOR: //name// [facility] ED Test Date: 2019-10-06 Test Time: 20:21:13 Pat Name: PARIS BARBA Department: Room: Gender: F Rental Boats Caretaker: NIDIA : 1990 Requested By: Bridget Flood Order Number: [id number] MD: Johnny Melgar Measurements Intervals [place] Rate: 92 P: 11 [place]: 163 QRS: 10 QRSD: 79 T: 31 QT: 335 QTc: 415 Interpretive Statements Sinus rhythm Low voltage, extremity and precordial leads Compared to ECG 08/30/2019 01:56:35 Sinus tachycardia no longer present Electronically Signed On 10-07-2019 10:31:15 ACADEMIC COUNSELOR by Johnny Melgar [email or web address] <ELECTRONICALLY SIGNED> By: Johnny Melgar MD, FAC 10/07/19 1031 20 20 Johnny Melgar MD, [facility] /EPI
== END 2019-10-06 23:58 | disposition home or self-care (01) ==
LOC: M.ERS 19:56
PROVIDERS: Emergency Medicine
DX: R00.2 Palpitations (principal); G47.30 Sleep apnea, unspecified; L40.9 Psoriasis, unspecified; Z87.891 Personal history of nicotine dependence; Z88.8 Allergy status to other drugs, medicaments and biological substances; Z87.01 Personal history of pneumonia (recurrent)

== ENCOUNTER 2019-10-16 19:48 | Emergency (ER) | payer BC ==
[~2019-10-16] VITALS: Ht 162.6 cm; Wt 83.9 kg
[2019-10-16] MEDS ORDERED: ONDANSETRON ODT4 MG PO (20:03)
[2019-10-16 20:49] LABS: ABSOLUTE EOSINOPHILS 0.2 thou/uL (0.0-0.7); ABSOLUTE LYMPHOCYTES 1.5 thou/uL (0.8-5.3); ABSOLUTE MONOCYTES 0.4 thou/uL (0.0-1.2); ABSOLUTE NEUTROPHILS 7.6 thou/uL (1.6-8.1); BASOPHILS 0.5 %; EOSINOPHILS 2.4 %; HEMOGLOBIN 15.5 gm/dL (12.0-15.0); LYMPHOCYTES 15.2 %; MCH 31.5 pg (26.0-34.0); MCHC 35.2 g/dL (28.0-37.0); MCV 89.6 fL (80.0-100.0); MONOCYTES 3.8 %; MPV 8.2 fl. (7.2-11.1); NUCLEATED RBCS 0 /100WBC; PLATELET COUNT* 247 thou/uL (150-400); POLYS 78.1 %; RBC 4.91 mil/uL (4.20-5.00); RDW-CV 14.2 % (10.5-14.5); WBC 9.8 thou/uL (4.0-11.0)
[2019-10-16 20:49] LABS: URINE BILIRUBIN NEGATIVE (Negative); URINE BLOOD NEGATIVE (Negative); URINE CLARITY CLEAR; URINE COLOR YELLOW; URINE GLUCOSE-RANDOM NEGATIVE (Negative); URINE KETONES NEGATIVE (Negative); URINE LEUKOCYTES NEGATIVE (Negative); URINE NITRITE NEGATIVE (Negative); URINE PROTEIN NEGATIVE (Negative); URINE SPECIFIC GRAVITY >= 1.030 (1.005-1.030); URINE UROBILINOGEN 0.2 E.U./dl (0.2-1.0)
[2019-10-16 21:01] LABS: CALCIUM 8.3 mg/dL (8.5-10.1); CREATININE 0.7 mg/dL (0.6-1.3); POTASSIUM 3.6 mmol/L (3.5-5.1)
[2019-10-16 21:05] LABS: ALBUMIN 3.8 g/dL (3.4-5.0); TOTAL BILIRUBIN 0.4 mg/dL (<0.1-1.0); TOTAL PROTEIN 7.9 g/dL (6.4-8.2)
[2019-10-16] MEDS ORDERED: NYSTATIN100000 UNI SW&SWALLOW (21:59)
[2019-10-16 22:06] VITALS: BP 122/78
== END 2019-10-16 22:06 | disposition home or self-care (01) ==
LOC: M.ERS 19:48
PROVIDERS: Physician Assistant
DX: N83.02 Follicular cyst of left ovary (principal); G47.30 Sleep apnea, unspecified; Z90.49 Acquired absence of other specified parts of digestive tract; Z86.711 Personal history of pulmonary embolism; Z87.891 Personal history of nicotine dependence; Z88.1 Allergy status to other antibiotic agents

== ENCOUNTER 2020-01-19 04:54 | Emergency (ER) | payer BC ==
[~2020-01-19] VITALS: Ht 162.6 cm; Wt 86.2 kg
[~2020-01-19 04:54] MED LIST changes: +NYSTATIN100000 UNI SW&SWALLOW; +ONDANSETRON ODT4 MG PO
[2020-01-19 05:10] LABS: URINE BILIRUBIN NEGATIVE (Negative); URINE BLOOD 1+ (Negative); URINE CLARITY CLEAR; URINE COLOR YELLOW; URINE GLUCOSE-RANDOM NEGATIVE (Negative); URINE KETONES NEGATIVE (Negative); URINE LEUKOCYTES-REFLEX NEGATIVE (Negative); URINE NITRITE-REFLEX NEGATIVE (Negative); URINE PROTEIN NEGATIVE (Negative); URINE SPECIFIC GRAVITY >= 1.030 (1.005-1.030); URINE UROBILINOGEN 0.2 E.U./dl (0.2-1.0)
[2020-01-19 05:17] LABS: AMP/METHAMP Negative (Negative); BARBITURATES Negative (Negative); BENZODIAZEPINES Negative (Negative); COCAINE Negative (Negative); METHADONE Negative (Negative); OPIATES Negative (Negative); PCP Negative (Negative); THC Negative (Negative)
[2020-01-19 05:18] LABS: CASTS None Seen /LPF (None Seen); CRYSTALS None Seen /LPF (None Seen); MUCUS 4-6 Moderate strn/LPF (None Seen); SQUAMOUS 4-10 Moderate /LPF (0-3); URINE RBC 3-10 Few /HPF (0-2); URINE WBC-REFLEX 0-5 Rare /HPF (0-5)
[2020-01-19] MEDS ORDERED: FLEXERIL PO ×3 (05:42→05:59)
[2020-01-19] MEDS ORDERED: HYDROCODON-ACE1 EAC8 PO (05:42)
[2020-01-19 06:07] VITALS: BP 139/75
== END 2020-01-19 06:07 | disposition home or self-care (01) ==
LOC: M.ERS 04:54
PROVIDERS: Emergency Medicine
DX: M25.512 Pain in left shoulder (principal); G47.30 Sleep apnea, unspecified; Z90.49 Acquired absence of other specified parts of digestive tract; Z86.711 Personal history of pulmonary embolism; Z87.891 Personal history of nicotine dependence; Z88.8 Allergy status to other drugs, medicaments and biological substances

== ENCOUNTER → 2020-04-26 | Outpatient (CLI) | payer BC ==
[~2020-04-26] MED LIST changes: +FLEXERIL PO; +HYDROCODON-ACE1 EAC8 PO
== END ==
LOC: M.ULTRA 04-22 14:00
PROVIDERS: ATTEND Nurse Practitioner Family
DX: M79.604 Pain in right leg (principal); Z86.711 Personal history of pulmonary embolism

== ENCOUNTER 2020-05-06 02:42 | Emergency (ER) | payer BC ==
[~2020-05-06] VITALS: Ht 160 cm; Wt 87.1 kg
[2020-05-06 02:57] LABS: URINE BILIRUBIN NEGATIVE (Negative); URINE BLOOD 1+ (Negative); URINE CLARITY CLEAR; URINE COLOR YELLOW; URINE GLUCOSE-RANDOM NEGATIVE (Negative); URINE KETONES NEGATIVE (Negative); URINE LEUKOCYTES-REFLEX NEGATIVE (Negative); URINE NITRITE-REFLEX NEGATIVE (Negative); URINE PROTEIN NEGATIVE (Negative); URINE SPECIFIC GRAVITY >= 1.030 (1.005-1.030); URINE UROBILINOGEN 0.2 E.U./dl (0.2-1.0)
[2020-05-06] MEDS ORDERED: OMEPRAZOLE 20 M20 M1 (03:01)
[2020-05-06] MEDS ORDERED: OMEPRAZOLE40 MG (03:01)
[2020-05-06] MEDS ORDERED: ONDANSETRON ODT4 MG (03:02)
[2020-05-06 03:05] LABS: CASTS None Seen /LPF (None Seen); CRYSTALS None Seen /LPF (None Seen); MUCUS 4-6 Moderate strn/LPF (None Seen); SQUAMOUS 0-3 Few /LPF (0-3); URINE RBC 3-10 Few /HPF (0-2); URINE WBC-REFLEX None Seen /HPF (0-5)
[2020-05-06 03:06] LABS: ABSOLUTE BASOPHILS 0.1 thou/uL (0.0-0.2); ABSOLUTE EOSINOPHILS 0.1 thou/uL (0.0-0.7); ABSOLUTE LYMPHOCYTES 1.8 thou/uL (0.8-5.3); ABSOLUTE MONOCYTES 0.4 thou/uL (0.0-1.2); ABSOLUTE NEUTROPHILS 5.4 thou/uL (1.6-8.1); BASOPHILS 0.7 %; EOSINOPHILS 1.8 %; HEMOGLOBIN 14.3 gm/dL (12.0-15.0); LYMPHOCYTES 23.2 %; MCH 31.9 pg (26.0-34.0); MCHC 34.8 g/dL (28.0-37.0); MCV 91.6 fL (80.0-100.0); MONOCYTES 5.6 %; NUCLEATED RBCS 0 /100WBC; PLATELET COUNT* 242 thou/uL (150-400); POLYS 68.7 %; RBC 4.47 mil/uL (4.20-5.00); WBC 7.9 thou/uL (4.0-11.0)
[2020-05-06 03:23] LABS: CALCIUM 8.9 mg/dL (8.5-10.1); CREATININE 0.9 mg/dL (0.6-1.3); POTASSIUM 3.6 mmol/L (3.5-5.1)
[2020-05-06 03:26] LABS: MAGNESIUM 1.8 mg/dL (1.8-2.4); TOTAL BILIRUBIN 0.4 mg/dL (<0.1-1.0); TOTAL PROTEIN 7.7 g/dL (6.4-8.2)
[2020-05-06] MEDS ORDERED: PHENERGAN 25 MG25 M1 PO ×2 (05:26→05:27)
[2020-05-06 05:45] VITALS: BP 149/79
== END 2020-05-06 05:48 | disposition home or self-care (01) ==
LOC: M.ERS 02:42
PROVIDERS: Emergency Medicine
DX: K21.9 Gastro-esophageal reflux disease without esophagitis (principal); R11.2 Nausea with vomiting, unspecified; G47.30 Sleep apnea, unspecified; Z90.49 Acquired absence of other specified parts of digestive tract; Z86.711 Personal history of pulmonary embolism; Z87.891 Personal history of nicotine dependence; Z88.8 Allergy status to other drugs, medicaments and biological substances

== ENCOUNTER → 2020-05-10 | Outpatient (CLI) | payer BC ==
[~2020-05-10] MED LIST changes: +OMEPRAZOLE 20 M20 M1; +OMEPRAZOLE40 MG; +ONDANSETRON ODT4 MG
== END ==
LOC: M.CT 03-17 09:00
PROVIDERS: ATTEND Nurse Practitioner Family
DX: K57.30 Diverticulosis of large intestine without perforation or abscess without bleeding (principal); N83.292 Other ovarian cyst, left side; N83.291 Other ovarian cyst, right side; R19.5 Other fecal abnormalities; K42.9 Umbilical hernia without obstruction or gangrene

== ENCOUNTER 2020-06-09 15:11 | Emergency (ER) | payer BC ==
[~2020-06-09] VITALS: Ht 160 cm; Wt 81.7 kg
[2020-06-09 16:22] LABS: HEMATOCRIT 43.9 % (37.0-47.0); HEMOGLOBIN 15.3 gm/dL (12.0-15.0); MCH 31.8 pg (26.0-34.0); MCHC 34.9 g/dL (28.0-37.0); MCV 91.2 fL (80.0-100.0); MPV 8.1 fl. (7.2-11.1); NUCLEATED RBCS 0 /100WBC; PLATELET COUNT* 211 thou/uL (150-400); RBC 4.81 mil/uL (4.20-5.00); RDW-CV 13.8 % (10.5-14.5); WBC 8.1 thou/uL (4.0-11.0)
[2020-06-09 16:30] LABS: CALCIUM 8.3 mg/dL (8.5-10.1); CREATININE 0.8 mg/dL (0.6-1.3); POTASSIUM 3.8 mmol/L (3.5-5.1)
[2020-06-09 16:35] LABS: ALBUMIN 3.5 g/dL (3.4-5.0); TOTAL BILIRUBIN 0.4 mg/dL (<0.1-1.0); TOTAL PROTEIN 7.9 g/dL (6.4-8.2)
[2020-06-09 16:55] LABS: ABSOLUTE LYMPHOCYTES 0.6 thou/uL (0.8-5.3); ABSOLUTE MONOCYTES 0.2 thou/uL (0.0-1.2); ABSOLUTE NEUTROPHILS 7.2 thou/uL (1.6-8.1); ATYPICAL LYMPHS 2 %; PLATELET ESTIMATE ADEQUATE
[2020-06-09] MEDS ORDERED: ZOFRAN ODT4 MG PO (18:36)
[2020-06-09 18:58] VITALS: BP 31/57
--- NOTE | 2020-06-10 17:17 | EKG ---
[place] [address] ELECTROCARDIOGRAM REPORT Name: PARIS BARBA Room: [facility]#: [id number] Admission: 06/09/20 Attend Phys: Discharge: 06/09/20 Date of : [birth year] Date of Service: 06/09/20 1517 Report #: [id number] THIS REPORT FOR: //name// [facility] ED Test Date: 2020-06-09 Test Time: 15:17:35 Pat Name: PARIS BARBA Department: Room: Gender: Radiator Fitter: [facility] : 1990 Requested By: Brandon Moe Order Number: [id number] Peter MD: Johnny Melgar Measurements Intervals [place] Rate: 122 P: 49 MT: 152 QRS: 267 QRSD: 84 T: 25 QT: 307 QTc: 438 Interpretive Statements Sinus tachycardia left axis deviation Probable anteroseptal infarct, old Compared to ECG 10/06/2019 20:21:13 Sinus rhythm no longer present Electronically Signed On 06-10-2020 17:17:46 MACHINE II COREMAKER by Johnny Melgar [email or web address] <ELECTRONICALLY SIGNED> By: Johnny Melgar MD, [facility] 06/10/20 1717 1517 151 Johnny Melgar MD, [facility] /EPI
== END 2020-06-09 18:58 | disposition home or self-care (01) ==
LOC: M.ERS 15:11
PROVIDERS: Family Medicine
DX: R10.13 Epigastric pain (principal); R11.2 Nausea with vomiting, unspecified; Z88.8 Allergy status to other drugs, medicaments and biological substances; Z87.891 Personal history of nicotine dependence; Z90.49 Acquired absence of other specified parts of digestive tract

== ENCOUNTER 2020-06-23 09:56 | Emergency (ER) | payer BC ==
[~2020-06-23] VITALS: Ht 160 cm; Wt 83.9 kg
[~2020-06-23 09:56] MED LIST changes: +ZOFRAN ODT4 MG PO
[2020-06-23 10:14] LABS: URINE BILIRUBIN NEGATIVE (Negative); URINE BLOOD 3+ (Negative); URINE CLARITY CLEAR; URINE COLOR YELLOW; URINE GLUCOSE-RANDOM NEGATIVE (Negative); URINE KETONES NEGATIVE (Negative); URINE LEUKOCYTES-REFLEX NEGATIVE (Negative); URINE NITRITE-REFLEX NEGATIVE (Negative); URINE PROTEIN NEGATIVE (Negative); URINE UROBILINOGEN 0.2 E.U./dl (0.2-1.0)
[2020-06-23 10:25] LABS: ABSOLUTE BASOPHILS 0.1 thou/uL (0.0-0.2); ABSOLUTE EOSINOPHILS 0.4 thou/uL (0.0-0.7); ABSOLUTE LYMPHOCYTES 2.2 thou/uL (0.8-5.3); ABSOLUTE MONOCYTES 0.6 thou/uL (0.0-1.2); ABSOLUTE NEUTROPHILS 4.1 thou/uL (1.6-8.1); BASOPHILS 1.2 %; EOSINOPHILS 5.8 %; HEMATOCRIT 43.3 % (37.0-47.0); HEMOGLOBIN 14.8 gm/dL (12.0-15.0); LYMPHOCYTES 29.8 %; MCH 31.2 pg (26.0-34.0); MCHC 34.1 g/dL (28.0-37.0); MCV 91.5 fL (80.0-100.0); MONOCYTES 7.5 %; NUCLEATED RBCS 0 /100WBC; PLATELET COUNT* 269 thou/uL (150-400); POLYS 55.7 %; RBC 4.73 mil/uL (4.20-5.00); RDW-CV 14.1 % (10.5-14.5); WBC 7.4 thou/uL (4.0-11.0)
[2020-06-23 10:32] LABS: BACTERIA-REFLEX 1-9 Few /HPF (None Seen); SQUAMOUS 0-3 Few /LPF (0-3); URINE RBC 0-2 Rare /HPF (0-2); URINE WBC-REFLEX 0-5 Rare /HPF (0-5)
[2020-06-23 10:33] LABS: CASTS None Seen /LPF (None Seen); CRYSTALS None Seen /LPF (None Seen)
[2020-06-23 10:39] LABS: CREATININE 0.8 mg/dL (0.6-1.3); POTASSIUM 3.8 mmol/L (3.5-5.1)
[2020-06-23] MEDS ORDERED: ZOFRAN ODT4 MG SUBLING (10:41)
[2020-06-23] MEDS ORDERED: BENTYL 20 MG TA20 M1 PO (10:41)
[2020-06-23 10:43] LABS: ALBUMIN 3.5 g/dL (3.4-5.0); TOTAL BILIRUBIN 0.3 mg/dL (<0.1-1.0); TOTAL PROTEIN 7.5 g/dL (6.4-8.2)
[2020-06-23] MEDS ORDERED: NORCO 5-325 TA1 EAC2 PO (12:27)
[2020-06-23 13:05] VITALS: BP 100/69
== END 2020-06-23 13:05 | disposition home or self-care (01) ==
LOC: M.ERS 09:56
PROVIDERS: Family Medicine
DX: R10.10 Upper abdominal pain, unspecified (principal); M25.511 Pain in right shoulder; Z88.8 Allergy status to other drugs, medicaments and biological substances; Z87.891 Personal history of nicotine dependence; Z90.49 Acquired absence of other specified parts of digestive tract

== ENCOUNTER 2020-07-29 00:01 | Emergency (ER) | payer OTHER ==
[~2020-07-29] VITALS: Ht 160 cm; Wt 86.2 kg
[~2020-07-29 00:01] MED LIST changes: +BENTYL 20 MG TA20 M1 PO; +NORCO 5-325 TA1 EAC2 PO
[2020-07-29 00:15] LABS: URINE BILIRUBIN NEGATIVE (Negative); URINE BLOOD TRACE (Negative); URINE CLARITY CLEAR; URINE COLOR YELLOW; URINE GLUCOSE-RANDOM NEGATIVE (Negative); URINE KETONES NEGATIVE (Negative); URINE LEUKOCYTES-REFLEX NEGATIVE (Negative); URINE NITRITE-REFLEX NEGATIVE (Negative); URINE PROTEIN NEGATIVE (Negative); URINE SPECIFIC GRAVITY 1.025 (1.005-1.030); URINE UROBILINOGEN 0.2 E.U./dl (0.2-1.0)
[2020-07-29 03:18] VITALS: BP 116/80
== END 2020-07-29 03:19 | disposition home or self-care (01) ==
LOC: M.ERS 00:01
PROVIDERS: Emergency Medicine
DX: S09.90XA Unspecified injury of head, initial encounter (principal); J03.90 Acute tonsillitis, unspecified; Z88.8 Allergy status to other drugs, medicaments and biological substances; Z87.891 Personal history of nicotine dependence; Z90.49 Acquired absence of other specified parts of digestive tract; Z79.01 Long term (current) use of anticoagulants; W22.8XXA Striking against or struck by other objects, initial encounter; Y93.89 Activity, other specified; Y92.89 Other specified places as the place of occurrence of the external cause; Y99.8 Other external cause status

== ENCOUNTER 2020-09-09 12:55 | Emergency (ER) | payer OTHER, MEDICAID ==
[~2020-09-09] VITALS: Ht 160 cm; Wt 81.7 kg
[2020-09-09 14:03] VITALS: BP 138/72
== END 2020-09-09 14:04 | disposition home or self-care (01) ==
LOC: M.ERS 12:55
DX: M25.562 Pain in left knee (principal); G47.30 Sleep apnea, unspecified; L40.9 Psoriasis, unspecified; Z87.01 Personal history of pneumonia (recurrent); Z86.711 Personal history of pulmonary embolism; Z90.49 Acquired absence of other specified parts of digestive tract; Z87.891 Personal history of nicotine dependence; Z88.8 Allergy status to other drugs, medicaments and biological substances

== ENCOUNTER 2021-04-02 19:18 | Emergency (ER) | payer OTHER, MEDICAID ==
[~2021-04-02] VITALS: Ht 162.6 cm; Wt 90.3 kg
[2021-04-02] MEDS ORDERED: CHILDREN'S ASPI81 M1 (19:24)
[2021-04-02 19:25] VITALS: BP 127/80
== END 2021-04-02 22:25 | disposition home or self-care (01) ==
LOC: M.ERS 19:18
DX: R07.89 Other chest pain (principal); Z53.21 Procedure and treatment not carried out due to patient leaving prior to being seen by health care provider